=== PATIENT | male | born 1955 | race Caucasian/White ===

== ENCOUNTER → 2020-06-22 | Outpatient (CLI) | payer BC, OTHER ==
[~2020-06-22] MED LIST: ATIV1TAB10 PO; ATOR80TA59; D31000TA2 PO; EFFE150C2 PO; ELIQ5TAB PO; FERR324T21 PO; INSULANT SQ; LAMO100T3 PO; MAGN400T2 PO; METF500T13 PO; METO200T28 PO; MINI5CAP PO; NITR0.4S14; PANT40TA29; POTA1TAB23 PO; REME15TA2 PO; ZONI100C17 PO
== END ==
LOC: M LABSMTC 09:44
PROVIDERS: ATTEND Anesthesiology
DX: Z20.828 Contact with and (suspected) exposure to other viral communicable diseases (principal); Z11.59 Encounter for screening for other viral diseases

== ENCOUNTER 2020-06-27 06:46 | Day surgery (SDC) | payer OTHER ==
[~2020-06-27] VITALS: Ht 180.3 cm; Wt 120.6 kg
[~2020-06-27 06:46] MED LIST changes: +NS 1,000 ML IV ONE
[2020-06-27] MEDS ORDERED: LIDOCAINE 2% 100MG/5ML SDV (FOR ANES.) As Ordered ONE (07:28)
[2020-06-27] MEDS ORDERED: propofoL 500 MG/50 ML VIAL As Ordered ONE (07:28)
[2020-06-27] MEDS ORDERED: propofoL 200 MG/20 ML VIAL As Ordered ONE (07:39)
--- NOTE | 2020-06-27 08:11 | ROOR ---
Patient Name: Mykel Eid Procedure Date: 06/27/2020 7:33 AM Date of : 1955 Age: 65 Room: [facility] Gender: Male Note Status: Finalized Procedure: Colonoscopy Indications: High risk colon cancer surveillance: Personal history of colon cancer Providers: Juan Carlos Burrell MD Referring MD: Amadeo Chen Requesting Provider: Medicines: Monitored Anesthesia Care Complications: No immediate complications. Procedure: Pre-Anesthesia Assessment: - Prior to the procedure, a History and Physical was performed, and patient medications and allergies were reviewed. The patient is competent. The risks and benefits of the procedure and the sedation options and risks were discussed with the patient. All questions were answered and informed consent was obtained. Patient identification and proposed procedure were verified by the physician, the nurse and the photographic developer and printer in the endoscopy suite. Mental Status Examination: alert and oriented. Airway Examination: normal oropharyngeal airway and neck mobility. Respiratory Examination: clear to auscultation. CV Examination: normal. Prophylactic Antibiotics: The patient does not require prophylactic antibiotics. Prior Anticoagulants: The patient has taken Eliquis (apixaban), last dose was 3 days prior to procedure. ASA Grade Assessment: III - A patient with severe systemic disease. After reviewing the risks and benefits, the patient was deemed in satisfactory condition to undergo the procedure. The anesthesia plan was to use monitored anesthesia care (MAC). Immediately prior to administration of medications, the patient was re-assessed for adequacy to receive sedatives. The heart rate, respiratory rate, oxygen saturations, blood pressure, adequacy of pulmonary ventilation, and response to care were monitored throughout the procedure. The physical status of the patient was re-assessed after the procedure. The Colonoscope was introduced through the anus and advanced to the ileocolonic anastomosis. The colonoscopy was somewhat difficult due to poor bowel prep. Successful completion of the procedure was aided by lavage. The patient tolerated the procedure well. The quality of the bowel preparation was poor. Findings: The perianal and digital rectal examinations were normal. There was evidence of a prior [id number] ileo-colonic anastomosis in the transverse colon. This was patent and was characterized by healthy appearing mucosa. The anastomosis was traversed. A 10 mm polyp was found in the sigmoid colon. The polyp was pedunculated. The polyp was removed with a hot snare. Resection and retrieval were complete. Estimated blood loss: none. Four sessile polyps were found in the recto-sigmoid colon. The polyps were diminutive in size. These polyps were removed with a hot snare. Resection and retrieval were complete. Estimated blood loss: none. The retroflexed view of the distal rectum and anal verge was normal and showed no anal or rectal abnormalities. Impression: - Preparation of the colon was poor. - Patent [id number] ileo-colonic anastomosis, characterized by healthy appearing mucosa. - One 10 mm polyp in the sigmoid colon, removed with a hot snare. Resected and retrieved. - Four diminutive polyps at the recto-sigmoid colon, removed with a hot snare. Resected and retrieved. - The distal rectum and anal verge are normal on retroflexion view. Recommendation: - Discharge patient to home (ambulatory). - Resume Eliquis (apixaban) at prior dose tomorrow. Refer to managing physician for further adjustment of therapy. - Await pathology results. - Repeat colonoscopy in 3 years for surveillance. Procedure Code(s): --- Professional --- 40123, Colonoscopy, flexible; with removal of tumor(s), polyp(s), or other lesion(s) by snare technique Diagnosis Code(s): --- Professional --- K63.5, Polyp of colon Z85.038, Personal history of other malignant neoplasm of large intestine Z98.0, Intestinal bypass and anastomosis status CPT copyright 2019 [employer]. All rights reserved. The codes documented in this report are preliminary and upon interactive media director review may be revised to meet current compliance requirements. Juan Carlos Burrell MD Juan Carlos Burrell MD 06/27/2020 8:11:21 AM Electronically signed by Juan Carlos Burrell MD Number of Addenda: 0 Note Initiated On: 06/27/2020 7:33 AM Estimated Blood Loss: Estimated blood loss: none.
[2020-06-27 08:25] VITALS: BP 105/63
== END 2020-06-27 09:25 | disposition home or self-care (01) ==
LOC: M OPP 06:46
PROVIDERS: ATTEND Surgery
DX: Z12.11 Encounter for screening for malignant neoplasm of colon (principal); Z85.038 Personal history of other malignant neoplasm of large intestine; K63.5 Polyp of colon; Z98.0 Intestinal bypass and anastomosis status; I25.2 Old myocardial infarction; I10 Essential (primary) hypertension; E78.5 Hyperlipidemia, unspecified; E11.9 Type 2 diabetes mellitus without complications; K21.9 Gastro-esophageal reflux disease without esophagitis; F41.9 Anxiety disorder, unspecified; F03.90 Unspecified dementia, unspecified severity, without behavioral disturbance, psychotic disturbance, mood disturbance, and anxiety; F32.9 Major depressive disorder, single episode, unspecified; F43.10 Post-traumatic stress disorder, unspecified; J45.909 Unspecified asthma, uncomplicated; G47.30 Sleep apnea, unspecified; Z95.5 Presence of coronary angioplasty implant and graft; Z92.21 Personal history of antineoplastic chemotherapy; Z86.14 Personal history of Methicillin resistant Staphylococcus aureus infection; Z87.891 Personal history of nicotine dependence; Z88.8 Allergy status to other drugs, medicaments and biological substances; Z79.01 Long term (current) use of anticoagulants; Z79.4 Long term (current) use of insulin; Z79.899 Other long term (current) drug therapy

== ENCOUNTER → 2021-04-10 | Outpatient (CLI) | payer OTHER ==
[~2021-04-10] MED LIST changes: -NS 1,000 ML IV ONE
== END ==
LOC: M RAD 08:36
PROVIDERS: ATTEND Nurse Practitioner Family
DX: R11.0 Nausea (principal)

== ENCOUNTER → 2021-04-10 | Outpatient (CLI) | payer OTHER | LOC: M RAD 07:57 | PROVIDERS: ATTEND Nurse Practitioner Family | DX: K80.20 Calculus of gallbladder without cholecystitis without obstruction (principal); R11.0 Nausea ==

== ENCOUNTER → 2021-06-14 | Outpatient (CLI) | payer OTHER ==
[~2021-06-14] MED LIST changes: -ATOR80TA59; +ATOR80TA59 PO; -D31000TA2 PO; +DONE10TA90 PO; +MEMA10TA19 PO; +MINI2CAP PO; +NASASPR; -NITR0.4S14; +NITR0.4S14 SL; +NO ITAB PO; -PANT40TA29; +PANT40TA29 PO; +SEMA1PEN2 SQ; +VENL75TA2 PO; +VITA100093 PO
== END ==
LOC: M LABSMTC 11:39
PROVIDERS: ATTEND Anesthesiology
DX: Z01.812 Encounter for preprocedural laboratory examination (principal); Z20.822 Contact with and (suspected) exposure to COVID-19

== ENCOUNTER 2021-06-19 09:31 | Day surgery (SDC) | payer OTHER ==
[~2021-06-19] VITALS: Ht 180.3 cm; Wt 113.4 kg
[~2021-06-19 09:31] MED LIST changes: +AMPICILLIN SOD/SULBACTAM SOD 3 GM in D5W MINI-BAG PLUS 100 ML IV ONE; +CelecoXIB 400 MG CAP PO ONE; +LIDOCAINE 1% MDV 20ML VIAL SQ PRN; +LIDOCAINE 2% 100MG/5ML SDV (FOR ANES.) As Ordered ONE; +LR 1,000 ML IV ONE; +MIDAZOLAM INJ 2MG/2ML VIAL (J2250 PER 1MG) As Ordered ONE; +ROCURONIUM BROMIDE 50 MG/5 ML VIAL As Ordered ONE; +fentaNYL 250 MCG/5 ML INJECTION As Ordered ONE; +propofoL 200 MG/20 ML VIAL As Ordered ONE
== END 2021-06-19 10:32 | disposition home or self-care (01) ==
LOC: M SDC 09:31
PROVIDERS: ATTEND Surgery
DX: K80.20 Calculus of gallbladder without cholecystitis without obstruction (principal); Z53.09 Procedure and treatment not carried out because of other contraindication; Z79.01 Long term (current) use of anticoagulants

== ENCOUNTER → 2021-08-11 | Outpatient (CLI) | payer OTHER ==
[~2021-08-11] MED LIST changes: -AMPICILLIN SOD/SULBACTAM SOD 3 GM in D5W MINI-BAG PLUS 100 ML IV ONE; +BASA100I SC; +BAYE81TA10 PO; -CelecoXIB 400 MG CAP PO ONE; -LIDOCAINE 1% MDV 20ML VIAL SQ PRN; -LIDOCAINE 2% 100MG/5ML SDV (FOR ANES.) As Ordered ONE; -LR 1,000 ML IV ONE; -MIDAZOLAM INJ 2MG/2ML VIAL (J2250 PER 1MG) As Ordered ONE; +MIRT1TAB16 PO; -ROCURONIUM BROMIDE 50 MG/5 ML VIAL As Ordered ONE; +VASC1CAP2 PO; -ZONI100C17 PO; +ZONI100C67 PO; -fentaNYL 250 MCG/5 ML INJECTION As Ordered ONE; -propofoL 200 MG/20 ML VIAL As Ordered ONE
== END ==
LOC: M LABSMTC 12:18
PROVIDERS: ATTEND Anesthesiology
DX: Z01.812 Encounter for preprocedural laboratory examination (principal); Z20.822 Contact with and (suspected) exposure to COVID-19

== ENCOUNTER 2021-08-14 11:02 | Day surgery (SDC) | payer OTHER ==
[~2021-08-14] VITALS: Ht 180.3 cm; Wt 109.7 kg
[2021-08-14] VITALS (7 sets, daily range): BP systolic 120–141; BP diastolic 72–84
[~2021-08-14 11:02] MED LIST changes: +AMPICILLIN SOD/SULBACTAM SOD 3 GM in D5W MINI-BAG PLUS 100 ML IV ONE; +CelecoXIB 400 MG CAP PO ONE
[2021-08-14] MEDS ORDERED: LR 1,000 ML IV SCH ×3 (11:10→15:25)
[2021-08-14] MEDS ORDERED: INSULIN LISPRO (NovoLOG) PER UNIT SC PRN (11:10)
[2021-08-14] MEDS ORDERED: ENOX120I3 (11:53)
[2021-08-14] MEDS ORDERED: BUPIVACAINE HCL 0.25% 30ML VIAL As Ordered ONE (12:15)
[2021-08-14] MEDS ORDERED: LIDOCAINE 1% SDV 30ML VIAL As Ordered ONE (12:15)
[2021-08-14] MEDS ORDERED: INDOCYANINE GREEN 25MG VIAL (IC-GREEN) As Ordered ONE (12:15)
[2021-08-14] MEDS ORDERED: propofoL 200 MG/20 ML VIAL As Ordered ONE (12:47)
[2021-08-14] MEDS ORDERED: MIDAZOLAM INJ 2MG/2ML VIAL (J2250 PER 1MG) As Ordered ONE (12:47)
[2021-08-14] MEDS ORDERED: LIDOCAINE 2% 100MG/5ML SDV (FOR ANES.) As Ordered ONE (12:47)
[2021-08-14] MEDS ORDERED: dexameTHASONE 4 MG/ML 1ML VIAL (J1100 PER 1MG) As Ordered ONE (12:47)
[2021-08-14] MEDS ORDERED: SUGAMMADEX SODIUM 500 MG/5 ML VIAL (BRIDION) As Ordered ONE (12:47)
[2021-08-14] MEDS ORDERED: ROCURONIUM BROMIDE 50 MG/5 ML VIAL As Ordered ONE (12:47)
[2021-08-14] MEDS ORDERED: METOCLOPRAMIDE INJ 10MG/2ML VIAL (J2765 PER 1) As Ordered ONE (12:47)
[2021-08-14] MEDS ORDERED: fentaNYL 250 MCG/5 ML INJECTION As Ordered ONE (12:47)
[2021-08-14] MEDS ORDERED: ETOMIDATE INJ 20MG/10ML VIAL As Ordered ONE (12:52)
[2021-08-14] MEDS ORDERED: ACETAMINOPHEN 1000MG 100ML IV BTL (OFIRMEV) (J0131 PER 10MG) As Ordered ONE (13:03)
[2021-08-14] MEDS ORDERED: ePHEDrine SULFATE 25 MG/5 ML(5MG/ML) SYRINGE As Ordered ONE (13:11)
[2021-08-14] MEDS ORDERED: PHENYLephrine 500MCG 5ML (100MCG/ML) SYRINGE As Ordered ONE (13:11)
[2021-08-14] MEDS ORDERED: fentaNYL 100 MCG/2 ML INJECTION IV PRN (15:15)
[2021-08-14] MEDS ORDERED: MORPHINE 2 MG/ML 1ML VIAL IV PRN (15:15)
[2021-08-14] MEDS ORDERED: ACETAMINOPHEN TAB 650MG DOSE (2X325MG) PO PRN (15:25)
[2021-08-14] MEDS ORDERED: NITROGLYCERIN 0.4 MG SUBL TABLET SL SCH (15:25)
[2021-08-14] MEDS ORDERED: ONDANSETRON 4MG 2ML VIAL IV PRN (15:25)
[2021-08-14] MEDS ORDERED: LORazepam 0.5 MG TAB PO PRN (15:25)
[2021-08-14] MEDS ORDERED: PERCOCET 5MG/325MG TAB PO PRN ×2 (15:25)
[2021-08-14] MEDS: oxyCODONE 5MG TAB PO PRN ×2 (15:53→16:47)
[2021-08-14] MEDS: KETOROLAC 30 MG/ML 1ML VIAL IV SCH ×2 (18:51→23:04)
[2021-08-14] MEDS: LEVEMIR (INSULIN DETEMIR) 1 UNITS/0.01ML SQ SCH (22:43)
[2021-08-14] MEDS: MAGNESIUM OXIDE 400MG TAB (MAG-OX) PO SCH (22:43)
[2021-08-14] MEDS: SENOKOT S TAB PO SCH (22:44)
[2021-08-14] MEDS: lamoTRIgine 100MG TAB PO SCH (22:44)
[2021-08-14] MEDS: METOCLOPRAMIDE INJ 10MG/2ML VIAL (J2765 PER 1) IV SCH (22:45)
[2021-08-14] MEDS: PRAZOSIN 1 MG CAP PO SCH (23:19)
[2021-08-15 02:00] VITALS: BP 133/74
[2021-08-15 06:00] VITALS: BP 134/76
[2021-08-15] MEDS: METOCLOPRAMIDE INJ 10MG/2ML VIAL (J2765 PER 1) IV SCH ×3 (06:20→21:47)
[2021-08-15 06:21] LABS: BASO % 0.4 % (0.0-1.0); EOS # 0.1 10^3/uL (0.0-0.5); EOS % 0.6 % (0.0-3.0); HEMATOCRIT 38.4 % (42.0-52.0); HEMOGLOBIN 13.3 g/dl (13.5-17.5); LYMPH # 1.2 10^3/uL (1.5-5.0); LYMPH % 13.2 % (24.0-44.0); MEAN CORPUSCULAR HEMOGLOBIN 32.3 pg (27.0-33.0); MEAN CORPUSCULAR HGB CONC 34.6 g/dl (32.0-36.5); MEAN CORPUSCULAR VOLUME 93.2 fl (80.0-96.0); MONO # 0.7 10^3/uL (0.0-0.8); MONO % 7.9 % (2.0-8.0); NEUTROPHILS % 77.5 % (36.0-66.0); PLATELET COUNT, AUTOMATED 104 10^3/uL (150-450); RED BLOOD COUNT 4.12 10^6/uL (4.30-6.10)
[2021-08-15] MEDS: KETOROLAC 30 MG/ML 1ML VIAL IV SCH ×3 (06:21→17:54)
[2021-08-15 06:43] LABS: ALBUMIN 3.4 GM/DL (3.2-5.2); BILIRUBIN,TOTAL 0.5 MG/DL (0.2-1.0); CALCIUM LEVEL 9.3 MG/DL (8.8-10.2); CREATININE FOR GFR 1.4 MG/DL (0.70-1.30); POTASSIUM SERUM 4.4 MEQ/L (3.5-5.1); TOTAL PROTEIN 5.8 GM/DL (6.4-8.2)
[2021-08-15] MEDS: ASPIRIN 81MG ENTERIC TABLET PO SCH (08:06)
[2021-08-15] MEDS: METOPROLOL SUCC (TopROL XL) 100MG *XL* TAB PO SCH (08:06)
[2021-08-15] MEDS: MAGNESIUM OXIDE 400MG TAB (MAG-OX) PO SCH ×2 (08:07→21:44)
[2021-08-15] MEDS: SENOKOT S TAB PO SCH ×2 (08:07→21:00)
[2021-08-15] MEDS: POTASSIUM CHLORIDE 10MEQ SR TABLET PO SCH (08:07)
[2021-08-15] MEDS: FERROUS GLUCONATE 324 MG TAB PO SCH (08:07)
[2021-08-15] MEDS: VITAMIN D 1,000 INTERNATIONAL UNITS TABLET PO SCH (08:07)
[2021-08-15] MEDS: PANTOPRAZOLE 40MG TAB (PROTONIX) PO SCH (08:07)
[2021-08-15] MEDS: ATORVASTATIN 20 MG TAB PO SCH (08:07)
[2021-08-15] MEDS ORDERED: ENOXAPARIN 40MG/0.4ML SYRINGE (J1650 PER 10MG) SC SCH (09:00)
[2021-08-15] MEDS: VENLAFAXINE 37.5 MG TAB PO SCH (09:53)
[2021-08-15] MEDS: lamoTRIgine 25MG TAB PO SCH (09:53)
[2021-08-15 10:00] VITALS: BP 132/77
[2021-08-15 14:00] VITALS: BP 131/76
[2021-08-15 18:00] VITALS: BP 118/68
[2021-08-15] MEDS ORDERED: ENOXAPARIN 120MG/0.8ML SYRINGE (J1650 PER 10MG) SC SCH (21:00)
[2021-08-15] MEDS: lamoTRIgine 100MG TAB PO SCH (21:44)
[2021-08-15] MEDS: PRAZOSIN 1 MG CAP PO SCH (21:46)
[2021-08-15] MEDS: LEVEMIR (INSULIN DETEMIR) 1 UNITS/0.01ML SQ SCH (21:47)
[2021-08-15 22:00] VITALS: BP 129/68
[2021-08-16] MEDS: KETOROLAC 30 MG/ML 1ML VIAL IV SCH ×3 (01:43→13:07)
[2021-08-16 05:52] VITALS: BP 144/78
[2021-08-16] MEDS: METOCLOPRAMIDE INJ 10MG/2ML VIAL (J2765 PER 1) IV SCH ×2 (06:00→14:58)
[2021-08-16 06:55] LABS: BASO # 0.1 10^3/uL (0.0-0.2); BASO % 0.7 % (0.0-1.0); EOS # 0.3 10^3/uL (0.0-0.5); EOS % 3.8 % (0.0-3.0); HEMOGLOBIN 13.2 g/dl (13.5-17.5); LYMPH # 1.2 10^3/uL (1.5-5.0); LYMPH % 16.6 % (24.0-44.0); MEAN CORPUSCULAR HEMOGLOBIN 32.5 pg (27.0-33.0); MEAN CORPUSCULAR HGB CONC 34.7 g/dl (32.0-36.5); MEAN CORPUSCULAR VOLUME 93.6 fl (80.0-96.0); MONO # 0.7 10^3/uL (0.0-0.8); MONO % 9.8 % (2.0-8.0); NEUTROPHILS # 4.8 10^3/uL (1.5-8.5); NEUTROPHILS % 68.5 % (36.0-66.0); RED BLOOD COUNT 4.06 10^6/uL (4.30-6.10); WHITE BLOOD COUNT 6.9 10^3/uL (4.0-10.0)
[2021-08-16 06:59] LABS: PLATELET COUNT, AUTOMATED 89 10^3/uL (150-450)
[2021-08-16 07:04] LABS: INR 0.99; PROTHROMBIN TIME 13.5 SECONDS (12.7-14.5)
[2021-08-16 07:05] LABS: PARTIAL THROMBOPLASTIN TIME 33.8 SECONDS (25.9-37.0)
[2021-08-16 07:18] LABS: ALBUMIN 3.1 GM/DL (3.2-5.2); BILIRUBIN,TOTAL 0.5 MG/DL (0.2-1.0); CALCIUM LEVEL 7.9 MG/DL (8.8-10.2); CREATININE FOR GFR 1.31 MG/DL (0.70-1.30); GLOMERULAR FILTRATION RATE 58.3 (>49); POTASSIUM SERUM 3.9 MEQ/L (3.5-5.1); TOTAL PROTEIN 5.7 GM/DL (6.4-8.2)
[2021-08-16] MEDS ORDERED: APIXABAN 5 MG TAB (ELIQUIS) PO SCH (09:00)
[2021-08-16] MEDS: PANTOPRAZOLE 40MG TAB (PROTONIX) PO SCH (09:57)
[2021-08-16] MEDS: VITAMIN D 1,000 INTERNATIONAL UNITS TABLET PO SCH (09:57)
[2021-08-16] MEDS: ATORVASTATIN 20 MG TAB PO SCH (09:57)
[2021-08-16] MEDS: MAGNESIUM OXIDE 400MG TAB (MAG-OX) PO SCH (09:57)
[2021-08-16] MEDS: POTASSIUM CHLORIDE 10MEQ SR TABLET PO SCH (09:58)
[2021-08-16] MEDS: SENOKOT S TAB PO SCH (09:58)
[2021-08-16] MEDS: ASPIRIN 81MG ENTERIC TABLET PO SCH (10:03)
[2021-08-16] MEDS: FERROUS GLUCONATE 324 MG TAB PO SCH (10:03)
[2021-08-16] MEDS: VENLAFAXINE 37.5 MG TAB PO SCH (10:03)
[2021-08-16 10:04] VITALS: BP 136/84
[2021-08-16] MEDS: METOPROLOL SUCC (TopROL XL) 100MG *XL* TAB PO SCH (10:04)
[2021-08-16] MEDS: lamoTRIgine 25MG TAB PO SCH (10:55)
[2021-08-16 14:00] VITALS: BP 132/77
== END 2021-08-16 16:12 | disposition home or self-care (01) ==
LOC: M SDC 11:02 → M MSPAV 17:30 → M SDC 08-16 16:12
PROVIDERS: ATTEND Surgery
DX: K80.10 Calculus of gallbladder with chronic cholecystitis without obstruction (principal); K66.0 Peritoneal adhesions (postprocedural) (postinfection); K82.8 Other specified diseases of gallbladder; E11.9 Type 2 diabetes mellitus without complications; I48.91 Unspecified atrial fibrillation; I10 Essential (primary) hypertension; I25.2 Old myocardial infarction; Z98.61 Coronary angioplasty status; F03.90 Unspecified dementia, unspecified severity, without behavioral disturbance, psychotic disturbance, mood disturbance, and anxiety; J45.909 Unspecified asthma, uncomplicated; Z79.01 Long term (current) use of anticoagulants; Z79.82 Long term (current) use of aspirin; Z79.84 Long term (current) use of oral hypoglycemic drugs; Z79.4 Long term (current) use of insulin; F41.9 Anxiety disorder, unspecified; F32.A Depression, unspecified
CPT/HCPCS: 36415; 47562; 80053; 85025; 85049; 85055; 85610; 85730; 88304; 96372; 96374; 96375; 96376; J0131; J0295; J1100; J1650; J1815; J1885; J2250; J2270; J2370; J2765; J3010; Q9968; S2900

== ENCOUNTER 2022-09-29 06:27 | Day surgery (SDC) | payer OTHER ==
[~2022-09-29] VITALS: Ht 182.9 cm; Wt 118.8 kg
[~2022-09-29 06:27] MED LIST changes: -AMPICILLIN SOD/SULBACTAM SOD 3 GM in D5W MINI-BAG PLUS 100 ML IV ONE; +BSS IRRIG/VANCO(10MG)/TOBRA(5MG)/EPINEPH(1:1000-0.5CC)500ML BAG-ORONLY IR ONE; +CYCLOPENTOLATE 1% OPHTH SOLN 2ML BTL OD SCH; -CelecoXIB 400 MG CAP PO ONE; +ENOX120I3; +LIDOCAINE 3.5 % 1ML OPHTH TOPICAL GEL OU ONE; +MIRT-84 PO; +OFLOXACIN 0.3 % (OCUFLOX) OPTH SOL 5ML OD ONE; +PHENYLEPHRINE 10% OPHTH SOL 5ML OD PRN; +PHENYLEPHRINE 2.5% OPHTH SOL 2ML OD SCH; -REME15TA2 PO; +TROPICAMIDE 1% OPHTH SOLN 15ML OD SCH
[2022-09-29] MEDS ORDERED: LIDOCAINE 1% SDV 5ML VIAL As Ordered ONE (07:00)
[2022-09-29] MEDS ORDERED: CEFUROXIME 1MG/0.1ML INTRACAMERAL INJ As Ordered ONE (07:02)
[2022-09-29] MEDS ORDERED: MIDAZOLAM INJ 2MG/2ML VIAL As Ordered ONE (07:18)
[2022-09-29] MEDS ORDERED: fentaNYL 100 MCG/2 ML INJECTION As Ordered ONE (07:19)
[2022-09-29 08:27] VITALS: BP 132/88; TEMP 97.7; O2SAT 96
== END 2022-09-29 08:28 | disposition home or self-care (01) ==
LOC: M SDC 06:27
PROVIDERS: ATTEND Ophthalmology
DX: H25.11 Age-related nuclear cataract, right eye (principal); I48.91 Unspecified atrial fibrillation; I10 Essential (primary) hypertension; E78.5 Hyperlipidemia, unspecified; K57.92 Diverticulitis of intestine, part unspecified, without perforation or abscess without bleeding; K21.9 Gastro-esophageal reflux disease without esophagitis; F41.9 Anxiety disorder, unspecified; F03.90 Unspecified dementia, unspecified severity, without behavioral disturbance, psychotic disturbance, mood disturbance, and anxiety; F32.A Depression, unspecified; F43.10 Post-traumatic stress disorder, unspecified; R06.83 Snoring; Z88.8 Allergy status to other drugs, medicaments and biological substances; J45.909 Unspecified asthma, uncomplicated; Z79.899 Other long term (current) drug therapy
CPT/HCPCS: 66984; J0697; J2250; J3010; V2632

== ENCOUNTER 2022-10-06 06:11 | Day surgery (SDC) | payer OTHER ==
[~2022-10-06] VITALS: Ht 182.9 cm; Wt 117.2 kg
[~2022-10-06 06:11] MED LIST changes: -CYCLOPENTOLATE 1% OPHTH SOLN 2ML BTL OD SCH; -OFLOXACIN 0.3 % (OCUFLOX) OPTH SOL 5ML OD ONE; +OFLOXACIN 0.3 % (OCUFLOX) OPTH SOL 5ML OS ONE; -PHENYLEPHRINE 10% OPHTH SOL 5ML OD PRN; +PHENYLEPHRINE 10% OPHTH SOL 5ML OS PRN; -PHENYLEPHRINE 2.5% OPHTH SOL 2ML OD SCH; -TROPICAMIDE 1% OPHTH SOLN 15ML OD SCH
[2022-10-06] MEDS: PHENYLEPHRINE 2.5% OPHTH SOL 2ML OS SCH ×2 (06:32→06:58)
[2022-10-06] MEDS: TROPICAMIDE 1% OPHTH SOLN 15ML OS SCH ×2 (06:32→06:58)
[2022-10-06] MEDS: CYCLOPENTOLATE 1% OPHTH SOLN 2ML BTL OS SCH ×2 (06:32→06:58)
[2022-10-06] MEDS ORDERED: LIDOCAINE 1% SDV 5ML VIAL As Ordered ONE (07:03)
[2022-10-06] MEDS ORDERED: MIDAZOLAM INJ 2MG/2ML VIAL As Ordered ONE (07:07)
[2022-10-06] MEDS ORDERED: fentaNYL 100 MCG/2 ML INJECTION As Ordered ONE (07:07)
[2022-10-06 08:15] VITALS: BP 138/79; TEMP 98.6; O2SAT 97
== END 2022-10-06 08:20 | disposition home or self-care (01) ==
LOC: M SDC 06:11
PROVIDERS: ATTEND Ophthalmology
DX: H25.12 Age-related nuclear cataract, left eye (principal); I48.91 Unspecified atrial fibrillation; K21.9 Gastro-esophageal reflux disease without esophagitis; F03.90 Unspecified dementia, unspecified severity, without behavioral disturbance, psychotic disturbance, mood disturbance, and anxiety; F41.9 Anxiety disorder, unspecified; K57.92 Diverticulitis of intestine, part unspecified, without perforation or abscess without bleeding; E11.9 Type 2 diabetes mellitus without complications; E78.5 Hyperlipidemia, unspecified; I10 Essential (primary) hypertension; Z86.79 Personal history of other diseases of the circulatory system; Z79.899 Other long term (current) drug therapy
CPT/HCPCS: 66984; J2250; J3010; V2632

== ENCOUNTER → 2023-10-30 | Outpatient (REF) ==
[~2023-10-30] MED LIST changes: -BSS IRRIG/VANCO(10MG)/TOBRA(5MG)/EPINEPH(1:1000-0.5CC)500ML BAG-ORONLY IR ONE; -EFFE150C2 PO; +EFFE150C3 PO; -LIDOCAINE 3.5 % 1ML OPHTH TOPICAL GEL OU ONE; +MEMA10TA PO; -MEMA10TA19 PO; +METO200T15 PO; -METO200T28 PO; -OFLOXACIN 0.3 % (OCUFLOX) OPTH SOL 5ML OS ONE; -PHENYLEPHRINE 10% OPHTH SOL 5ML OS PRN
== END ==
LOC: M PLAIMG 08:45
PROVIDERS: ATTEND Internal Medicine
DX: R06.02 Shortness of breath (principal)